=== PATIENT | female | born 1990 | race African-American/Black ===

== ENCOUNTER 2017-07-05 08:38 | Emergency (ER) | payer OTHER ==
[~2017-07-05] VITALS: Ht 162.6 cm; Wt 100.0 kg
[~2017-07-05 08:38] MED LIST: AMOX/K CLAV500 MG PO; AMOXICILLIN500 MG PO; DILAUDID4 MG PO; IBUPROFEN600 MG PO; LORTAB 5 PO; LORTAB 7.57.5 MG PO; MACRODANTIN100 MG PO; NAPROSYN500 MG PO; NO; NO HOME MEDS; OXYCODONE HCL15 MG PO; PENICILLN VK250 MG OR; PENICILLN VK500 M1 OR; PRE-NATAL PO; PRENATAL1 TA1; PRENATAL1 TA1 PO; ULTRAM50 MG OR
[2017-07-05 09:35] LABS: IMMATURE GRANULOCYTES 0.5 % (0.0-1.0); MEAN CELL VOLUME 85.6 fL CALC (80.0-100.0); MEAN CORPUSCULAR HGB 27.6 pG CALC (26.0-32.0); MEAN CORPUSCULAR HGB CONC 32.3 g/L CALC (32.0-36.0); NEUT# 11.3 thou/uL (2.00-7.15); RED BLOOD COUNT 3.62 mill/uL (4.20-5.60); RED CELL DISTRI WIDTH 18.2 % (11.5-15.5)
[2017-07-05 09:47] LABS: BUN 10 mg/dL (7-17); BUN/CREATININE RATIO 13 (12-20 (CALC)); CALCIUM 9.1 mg/dL (8.4-10.2); CARBON DIOXIDE 23 mmol/l (22-30); CHLORIDE 108 mmol/l (95-108); CREATININE 0.8 mg/dL (0.5-1.0); GFR > 60 ML/MIN (>=60 (CALC)); GFR FOR AFR.AMER. > 60 ML/MIN (>=60 (CALC)); GLUCOSE 98 mg/dL (65-105); SODIUM 142 mmol/l (137-146)
[2017-07-05 09:49] LABS: ANION GAP 15 (6-22 (CALC)); POTASSIUM 4.1 mmol/l (3.5-5.1)
[2017-07-05] MEDS ORDERED: CLEOCIN300 MG PO (11:14)
[2017-07-05] MEDS ORDERED: NORCO1 TA1 PO (11:19)
[2017-07-05 11:24] VITALS: BP 120/60
== END 2017-07-05 11:24 | disposition home or self-care (01) | DRG 159 ==
LOC: ED 08:38
PROVIDERS: Family Medicine
DX: M27.2 Inflammatory conditions of jaws (principal)

== ENCOUNTER 2021-06-14 14:53 | Emergency (ER) | payer OTHER ==
[~2021-06-14 14:53] MED LIST changes: +CLEOCIN300 MG PO; +NORCO1 TA1 PO
[2021-06-14 16:45] VITALS: BP 122/74
== END 2021-06-14 16:45 | disposition home or self-care (01) ==
LOC: ED 14:53
DX: R05 Cough (principal); R53.83 Other fatigue; F17.210 Nicotine dependence, cigarettes, uncomplicated; Z20.822 Contact with and (suspected) exposure to COVID-19